=== PATIENT | male | born 1965 | race African-American/Black ===

== ENCOUNTER 2017-06-16 20:19 | Emergency (ER) | payer MEDICAID, OTHER ==
[~2017-06-16] VITALS: Ht 175.3 cm; Wt 93.0 kg
[2017-06-16] MEDS ORDERED: ACETAMINOPHEN 325MG TABLET PO ONE (23:15)
[2017-06-16 23:39] LABS: CLARITY URINE CLEAR (CLEAR); COLOR URINE YELLOW (YELLOW); GLUCOSE URINE NEGATIVE (NEGATIVE); KETONES URINE TRACE (NEGATIVE); LEUKOCYTE ESTERASE URINE NEGATIVE (NEGATIVE); NITRITE URINE NEGATIVE (NEGATIVE); OCCULT BLOOD URINE NEGATIVE (NEGATIVE); PH URINE 6.5 (4.5-8.0); PROTEIN URINE NEGATIVE (NEGATIVE); SPECIFIC GRAVITY URINE 1.029 (1.005-1.030)
[2017-06-16 23:40] LABS: BASOPHILS % 0.8 % (0.0-2.0); EOSINOPHILS % 2.1 % (0.0-5.0); HEMATOCRIT. 39.3 % (42.0-52.0); HEMOGLOBIN. 13.7 g/dL (14.0-18.0); LYMPHOCYTES % 28.4 % (20.0-50.0); MEAN CORPUSCULAR HEMOGLOBIN 31.8 pg (28.0-32.0); MEAN CORPUSCULAR VOLUME 91.1 fL (80.0-94.0); MEAN PLATELET VOLUME 8.7 fl (7.4-10.4); MONOCYTES % 11.4 % (2.0-8.0); NEUTROPHILS % 57.3 % (40.0-76.0); PLATELET 175 x1000/uL (130-400); RED BLOOD CELL COUNT 4.32 mill/uL (4.7-6.1); RED CELL DISTRIBUTION WIDTH 14.7 % (11.6-14.6)
[2017-06-16 23:46] LABS: CHLORIDE 112 mEq/L (98-107)
[2017-06-16 23:54] LABS: CARBON DIOXIDE 28 mEq/L (21-32); ETHANOL BLOOD < 10 mg/dL
[2017-06-16 23:55] LABS: *AMPHETAMINES SCREEN URINE NEGATIVE (NEGATIVE); *BARBITURATES SCREEN URINE NEGATIVE (NEGATIVE); *BENZODIAZEPINES SCREEN URINE NEGATIVE (NEGATIVE); *COCAINE SCREEN URINE NEGATIVE (NEGATIVE); CANNABINOID URINE SCREEN NEGATIVE (NEGATIVE); METHADONE URINE SCREEN NEGATIVE (NEGATIVE); OPIATES URINE SCREEN NEGATIVE (NEGATIVE); PHENCYCLIDINE URINE SCREEN NEGATIVE (NEGATIVE)
[2017-06-17 20:55] VITALS: BP 127/69
== END 2017-06-17 22:05 ==
LOC: ER 20:19
DX: R45.851 Suicidal ideations (principal); F20.9 Schizophrenia, unspecified; I10 Essential (primary) hypertension; F17.200 Nicotine dependence, unspecified, uncomplicated
CPT/HCPCS: 36415; 80053; 80305; 81003; 85025; 99285; G0482; Z7610

== ENCOUNTER 2017-08-09 11:55 | Emergency (ER) | payer MEDICAID ==
[~2017-08-09] VITALS: Ht 182.9 cm; Wt 96.0 kg
[2017-08-09] MEDS ORDERED: QUET100T PO (12:43)
[2017-08-09] MEDS ORDERED: GABA300C PO (12:43)
[2017-08-09] MEDS ORDERED: VENL-179 PO (12:43)
[2017-08-09 15:06] LABS: BASOPHILS % 0.6 % (0.0-2.0); EOSINOPHILS % 0.7 % (0.0-5.0); HEMATOCRIT. 44.9 % (42.0-52.0); HEMOGLOBIN. 15.2 g/dL (14.0-18.0); LYMPHOCYTES % 26.4 % (20.0-50.0); MEAN CORPUSCULAR HEMOGLOBIN 31.1 pg (28.0-32.0); MEAN PLATELET VOLUME 8.6 fl (7.4-10.4); MONOCYTES % 10.1 % (2.0-8.0); NEUTROPHILS % 62.2 % (40.0-76.0); PLATELET 182 x1000/uL (130-400); RED BLOOD CELL COUNT 4.87 mill/uL (4.7-6.1)
[2017-08-09 15:11] LABS: CHLORIDE 108 mEq/L (98-107)
[2017-08-09 15:13] LABS: CLARITY URINE CLEAR (CLEAR); COLOR URINE YELLOW (YELLOW); GLUCOSE URINE NEGATIVE (NEGATIVE); KETONES URINE NEGATIVE (NEGATIVE); LEUKOCYTE ESTERASE URINE NEGATIVE (NEGATIVE); NITRITE URINE NEGATIVE (NEGATIVE); OCCULT BLOOD URINE NEGATIVE (NEGATIVE); PROTEIN URINE NEGATIVE (NEGATIVE); SPECIFIC GRAVITY URINE 1.024 (1.005-1.030)
[2017-08-09 15:17] LABS: CARBON DIOXIDE 28 mEq/L (21-32)
[2017-08-09 15:31] LABS: *AMPHETAMINES SCREEN URINE NEGATIVE (NEGATIVE); *BARBITURATES SCREEN URINE NEGATIVE (NEGATIVE); *BENZODIAZEPINES SCREEN URINE NEGATIVE (NEGATIVE); *COCAINE SCREEN URINE NEGATIVE (NEGATIVE); CANNABINOID URINE SCREEN NEGATIVE (NEGATIVE); METHADONE URINE SCREEN NEGATIVE (NEGATIVE); OPIATES URINE SCREEN NEGATIVE (NEGATIVE); PHENCYCLIDINE URINE SCREEN NEGATIVE (NEGATIVE)
[2017-08-10 18:05] VITALS: BP 128/76
== END 2017-08-10 18:07 | disposition home or self-care (01) ==
LOC: ER 12:42
DX: R45.851 Suicidal ideations (principal); F20.9 Schizophrenia, unspecified; F32.9 Major depressive disorder, single episode, unspecified
CPT/HCPCS: 36415; 80048; 80305; 81003; 85025; 99284; Z7610

== ENCOUNTER 2018-01-24 19:30 | Emergency (ER) | payer MEDICAID ==
[~2018-01-24] VITALS: Ht 175.3 cm; Wt 91.0 kg
[~2018-01-24 19:30] MED LIST: GABA300C PO; QUET100T PO; VENL-179 PO
[2018-01-24 21:16] LABS: HEMATOCRIT. 46.7 % (42.0-52.0); HEMOGLOBIN. 15.5 g/dL (14.0-18.0); MEAN CORPUSCULAR HEMOGLOBIN 30.6 pg (28.0-32.0); MEAN CORPUSCULAR VOLUME 92.1 fL (80.0-94.0); MEAN PLATELET VOLUME 8.5 fl (7.4-10.4); PLATELET 195 x1000/uL (130-400); RED BLOOD CELL COUNT 5.08 mill/uL (4.7-6.1); RED CELL DISTRIBUTION WIDTH 13.8 % (11.6-14.6)
[2018-01-24 21:21] LABS: CHLORIDE 105 mEq/L (98-107)
[2018-01-24 21:26] LABS: CLARITY URINE CLEAR (CLEAR); COLOR URINE YELLOW (YELLOW); KETONES URINE NEGATIVE (NEGATIVE); LEUKOCYTE ESTERASE URINE NEGATIVE (NEGATIVE); NITRITE URINE NEGATIVE (NEGATIVE); OCCULT BLOOD URINE NEGATIVE (NEGATIVE); PROTEIN URINE 1+ (NEGATIVE); SPECIFIC GRAVITY URINE 1.036 (1.005-1.030)
[2018-01-24 21:27] LABS: ETHANOL BLOOD < 10 mg/dL
[2018-01-24 21:39] LABS: *AMPHETAMINES SCREEN URINE NEGATIVE (NEGATIVE); *BARBITURATES SCREEN URINE NEGATIVE (NEGATIVE); *BENZODIAZEPINES SCREEN URINE NEGATIVE (NEGATIVE); *COCAINE SCREEN URINE NEGATIVE (NEGATIVE); CANNABINOID URINE SCREEN PRESUMTIVE POSITIVE (NEGATIVE); METHADONE URINE SCREEN NEGATIVE (NEGATIVE); OPIATES URINE SCREEN NEGATIVE (NEGATIVE); PHENCYCLIDINE URINE SCREEN NEGATIVE (NEGATIVE)
[2018-01-24 21:41] LABS: PLATELET ESTIMATE NORMAL
[2018-01-24] MEDS ORDERED: IBUPROFEN 600MG TABLET PO ONE (23:00)
[2018-01-25 14:06] VITALS: BP 145/89
== END 2018-01-25 14:23 ==
LOC: ER 20:24
DX: R45.851 Suicidal ideations (principal); R44.0 Auditory hallucinations; M25.50 Pain in unspecified joint; I10 Essential (primary) hypertension
CPT/HCPCS: 36415; 80053; 80305; 80307; 80329; 81003; 85025; 93005; 99285; G0482; Z7610

== ENCOUNTER 2018-03-01 14:51 | Emergency (ER) | payer MEDICAID ==
[~2018-03-01] VITALS: Ht 177.8 cm; Wt 80.0 kg
[2018-03-01 16:45] LABS: BASOPHILS % 0.6 % (0.0-2.0); HEMATOCRIT. 44.8 % (42.0-52.0); HEMOGLOBIN. 15.3 g/dL (14.0-18.0); LYMPHOCYTES % 29.3 % (20.0-50.0); MEAN CORPUSCULAR HEMOGLOBIN 31.4 pg (28.0-32.0); MEAN CORPUSCULAR VOLUME 91.9 fL (80.0-94.0); MEAN PLATELET VOLUME 8.1 fl (7.4-10.4); MONOCYTES % 9.3 % (2.0-8.0); NEUTROPHILS % 57.8 % (40.0-76.0); PLATELET 214 x1000/uL (130-400); RED BLOOD CELL COUNT 4.88 mill/uL (4.7-6.1); RED CELL DISTRIBUTION WIDTH 14.5 % (11.6-14.6)
[2018-03-01 16:49] LABS: CHLORIDE 107 mEq/L (98-107)
[2018-03-01 16:52] LABS: INR 1.1; PARTIAL THROMBOPLASTIN TIME 26.4 sec (23.4-31.0); PROTHROMBIN TIME 11.2 sec (9.4-11.6)
[2018-03-01 16:53] LABS: ETHANOL BLOOD < 10 mg/dL
[2018-03-01 16:58] LABS: CREATINE KINASE 124 IU/L (39-308)
[2018-03-01 17:02] LABS: CREATINE KINASE MB FRACTION 0.9 ng/mL (0.5-3.6)
[2018-03-01 17:21] LABS: *AMPHETAMINES SCREEN URINE NEGATIVE (NEGATIVE); *BARBITURATES SCREEN URINE NEGATIVE (NEGATIVE); *BENZODIAZEPINES SCREEN URINE NEGATIVE (NEGATIVE)
[2018-03-01 17:22] LABS: *COCAINE SCREEN URINE NEGATIVE (NEGATIVE); CANNABINOID URINE SCREEN PRESUMTIVE POSITIVE (NEGATIVE); METHADONE URINE SCREEN NEGATIVE (NEGATIVE); OPIATES URINE SCREEN NEGATIVE (NEGATIVE); PHENCYCLIDINE URINE SCREEN NEGATIVE (NEGATIVE)
[2018-03-01] MEDS ORDERED: HYDROCODONE/ACETAMINOPHEN 10/325MG TABLET PO ONE (17:30)
[2018-03-01] MEDS ORDERED: ONDANSETRON 4MG ODT PO ONE (17:30)
[2018-03-01] MEDS ORDERED: ASPIRIN 81MG TABLET PO ONE (17:30)
[2018-03-01] MEDS ORDERED: LORAZEPAM 1MG TABLET PO ONE (17:30)
[2018-03-01 20:14] VITALS: BP 141/87
== END 2018-03-01 20:26 | disposition home or self-care (01) ==
LOC: ER 15:11 → CANBEDREQ 22:53
DX: S09.90XA Unspecified injury of head, initial encounter (principal); R07.89 Other chest pain; I10 Essential (primary) hypertension; G89.29 Other chronic pain; Y08.89XA Assault by other specified means, initial encounter; Y93.89 Activity, other specified; Y92.89 Other specified places as the place of occurrence of the external cause; Y99.8 Other external cause status
CPT/HCPCS: 36415; 70450; 71045; 80053; 80305; 80307; 80329; 82550; 82553; 83690; 83880; 84443; 84484; 85025; 85610; 85730; 93005; 99285; G0482; Q0162; Z7610

== ENCOUNTER 2018-06-18 12:16 | Emergency (ER) | payer MEDICAID, OTHER ==
[~2018-06-18] VITALS: Ht 175.3 cm; Wt 92.0 kg
[2018-06-18] MEDS ORDERED: ONDANSETRON HCL 4MG/2ML VIAL IV STA (12:22)
[2018-06-18] MEDS ORDERED: MORPHINE SULFATE 4 MG/ML CPJ (NOT FOR IM USE) IV STA (12:22)
[2018-06-18] MEDS ORDERED: ASPIRIN 81MG TABLET PO ONE (12:30)
[2018-06-18] MEDS ORDERED: KETOROLAC 30MG/ML VIAL IV ONE (12:45)
[2018-06-18 12:54] LABS: BASOPHILS % 0.5 % (0.0-2.0); HEMATOCRIT. 41.2 % (42.0-52.0); LYMPHOCYTES % 23.5 % (20.0-50.0); MEAN CORPUSCULAR HEMOGLOBIN 31.6 pg (28.0-32.0); MEAN CORPUSCULAR VOLUME 93.5 fL (80.0-94.0); MEAN PLATELET VOLUME 8.4 fl (7.4-10.4); MONOCYTES % 11.9 % (2.0-8.0); NEUTROPHILS % 62.1 % (40.0-76.0); PLATELET 171 x1000/uL (130-400); RED BLOOD CELL COUNT 4.41 mill/uL (4.7-6.1); RED CELL DISTRIBUTION WIDTH 15.1 % (11.6-14.6)
[2018-06-18 13:00] LABS: CHLORIDE 110 mEq/L (98-107)
[2018-06-18 13:01] LABS: INR 1.1; PROTHROMBIN TIME 11.9 sec (9.4-11.6)
[2018-06-18 13:05] LABS: ETHANOL BLOOD < 10 mg/dL
[2018-06-18 13:09] LABS: CREATINE KINASE 181 IU/L (39-308); CREATINE KINASE MB FRACTION 0.8 ng/mL (0.5-3.6)
[2018-06-18 14:24] LABS: *AMPHETAMINES SCREEN URINE NEGATIVE (NEGATIVE); *BARBITURATES SCREEN URINE NEGATIVE (NEGATIVE); *BENZODIAZEPINES SCREEN URINE NEGATIVE (NEGATIVE)
[2018-06-18 14:25] LABS: *COCAINE SCREEN URINE NEGATIVE (NEGATIVE); CANNABINOID URINE SCREEN PRESUMTIVE POSITIVE (NEGATIVE); METHADONE URINE SCREEN NEGATIVE (NEGATIVE); OPIATES URINE SCREEN NEGATIVE (NEGATIVE); PHENCYCLIDINE URINE SCREEN NEGATIVE (NEGATIVE)
[2018-06-19 17:29] VITALS: BP 135/71
== END 2018-06-19 17:32 | disposition home or self-care (01) ==
LOC: ER 12:16 → CANBEDREQ 06-19 01:06 → ER 06-19 17:32
DX: R07.89 Other chest pain (principal); R45.851 Suicidal ideations; E11.9 Type 2 diabetes mellitus without complications; I10 Essential (primary) hypertension; F20.89 Other schizophrenia; Z79.82 Long term (current) use of aspirin
CPT/HCPCS: 36415; 71045; 80053; 80305; 80307; 80329; 82550; 82553; 83690; 83880; 84439; 84443; 84481; 84484; 85025; 85610; 93005; 96374; 96375; 99285; G0482; J1885; J2405

== ENCOUNTER 2018-06-20 23:56 | Emergency (ER) | payer OTHER ==
[~2018-06-20] VITALS: Ht 175.3 cm; Wt 93.0 kg
[2018-06-21 00:01] VITALS: BP 132/80
[2018-06-21] MEDS ORDERED: DIPHENHYDRAMINE 50MG/ML VIAL IM ONE (03:15)
== END 2018-06-21 03:35 | disposition home or self-care (01) ==
LOC: ER 06-21 00:27
DX: S60.569A Insect bite (nonvenomous) of unspecified hand, initial encounter (principal); I10 Essential (primary) hypertension; F20.9 Schizophrenia, unspecified; W57.XXXA Bitten or stung by nonvenomous insect and other nonvenomous arthropods, initial encounter; Y93.84 Activity, sleeping; Y92.9 Unspecified place or not applicable
CPT/HCPCS: 96372; 99283; J1200

== ENCOUNTER 2018-06-21 03:30 | Emergency (ER) | payer OTHER ==
[~2018-06-21] VITALS: Ht 182.9 cm; Wt 91.0 kg
[2018-06-21 05:56] VITALS: BP 126/79
== END 2018-06-21 05:59 | disposition home or self-care (01) ==
LOC: ER 03:30
DX: Z59.0 Homelessness (principal); I10 Essential (primary) hypertension; F20.9 Schizophrenia, unspecified
CPT/HCPCS: 99281; 99282

== ENCOUNTER 2018-06-21 09:22 | Emergency (ER) | payer OTHER ==
[~2018-06-21] VITALS: Ht 170.2 cm; Wt 96.0 kg
[2018-06-21 11:39] LABS: CLARITY URINE CLEAR (CLEAR); COLOR URINE YELLOW (YELLOW); KETONES URINE NEGATIVE (NEGATIVE); LEUKOCYTE ESTERASE URINE NEGATIVE (NEGATIVE); NITRITE URINE NEGATIVE (NEGATIVE); OCCULT BLOOD URINE NEGATIVE (NEGATIVE); PH URINE 6.5 (4.5-8.0); PROTEIN URINE TRACE (NEGATIVE); SPECIFIC GRAVITY URINE 1.027 (1.005-1.030)
[2018-06-21 14:07] VITALS: BP 131/76
== END 2018-06-21 14:14 | disposition home or self-care (01) ==
LOC: ER 11:33
DX: F20.9 Schizophrenia, unspecified (principal); E11.9 Type 2 diabetes mellitus without complications; I10 Essential (primary) hypertension; Z59.0 Homelessness
CPT/HCPCS: 81003; 99284; Z7610

== ENCOUNTER 2021-10-11 23:04 | Emergency (ER) | payer OTHER ==
[~2021-10-11] VITALS: Ht 177.8 cm; Wt 75.0 kg
[2021-10-11] MEDS ORDERED: OLANZAPINE 10 MG/VIAL IM STA (23:35)
[2021-10-11] MEDS ORDERED: LORAZEPAM 2MG/ML CPJ IM STA (23:35)
[2021-10-11] MEDS ORDERED: SODIUM CHLORIDE 0.9% 1,000 ML IV ONE (23:45)
[2021-10-12 00:42] LABS: BASOPHILS % 0.9 % (0.0-2.0); HEMATOCRIT. 41.7 % (42.0-52.0); LYMPHOCYTES % 33.4 % (20.0-50.0); MEAN CORPUSCULAR HEMOGLOBIN 31.2 pg (28.0-32.0); MEAN CORPUSCULAR VOLUME 92.5 fL (80.0-94.0); MEAN PLATELET VOLUME 8.3 fl (7.4-10.4); MONOCYTES % 10.4 % (2.0-8.0); NEUTROPHILS % 53.3 % (40.0-76.0); PLATELET 189 x1000/uL (130-400); RED BLOOD CELL COUNT 4.51 mill/uL (4.7-6.1); RED CELL DISTRIBUTION WIDTH 14.1 % (11.6-14.6)
[2021-10-12 00:48] LABS: CHLORIDE 111 mEq/L (98-107)
[2021-10-12 00:52] LABS: ETHANOL BLOOD < 10 mg/dL
[2021-10-12] MEDS ORDERED: IBUP-2029 MT (00:58)
[2021-10-12 02:19] LABS: CLARITY URINE CLEAR (CLEAR); COLOR URINE YELLOW (YELLOW); KETONES URINE NEGATIVE (NEGATIVE); LEUKOCYTE ESTERASE URINE NEGATIVE (NEGATIVE); NITRITE URINE NEGATIVE (NEGATIVE); OCCULT BLOOD URINE NEGATIVE (NEGATIVE); PH URINE 5.5 (4.5-8.0); PROTEIN URINE NEGATIVE (NEGATIVE); SPECIFIC GRAVITY URINE 1.008 (1.005-1.030); UROBILINOGEN URINE 0.2 E.U./dL (0.2-1.0)
[2021-10-12 02:27] LABS: *AMPHETAMINES SCREEN URINE NEGATIVE (NEGATIVE); *BARBITURATES SCREEN URINE NEGATIVE (NEGATIVE); *BENZODIAZEPINES SCREEN URINE NEGATIVE (NEGATIVE); *COCAINE SCREEN URINE PRESUMTIVE POSITIVE (NEGATIVE)
[2021-10-12 02:28] LABS: CANNABINOID URINE SCREEN PRESUMTIVE POSITIVE (NEGATIVE); METHADONE URINE SCREEN NEGATIVE (NEGATIVE); OPIATES URINE SCREEN NEGATIVE (NEGATIVE); PHENCYCLIDINE URINE SCREEN NEGATIVE (NEGATIVE)
[2021-10-12] MEDS ORDERED: ACETAMINOPHEN 325MG TABLET PO NR (16:45)
[2021-10-12 17:00] VITALS: BP 132/80
[2021-10-12] MEDS ORDERED: OLANZAPINE 5MG TABLET ODT PO SCH (17:00)
== END 2021-10-12 17:23 | disposition short-term general hospital (02) ==
LOC: ER 23:04
DX: R45.851 Suicidal ideations (principal); F20.9 Schizophrenia, unspecified; F14.10 Cocaine abuse, uncomplicated; Z79.899 Other long term (current) drug therapy; Z20.822 Contact with and (suspected) exposure to COVID-19
CPT/HCPCS: 36415; 80053; 80305; 80307; 80320; 80329; 81003; 85025; 96372; 99285; C9803; J2060; J3490; J7030; U0003; U0005; G0480

== ENCOUNTER 2025-01-07 12:42 | Emergency (ER) | payer OTHER ==
[~2025-01-07] VITALS: Ht 188 cm; Wt 90.0 kg
[~2025-01-07 12:42] MED LIST changes: +IBUP-2029 MT
[2025-01-07 12:50] VITALS: BP 138/76; PULSE 74; RESP 16; TEMP 36.6; O2SAT 98
[2025-01-07] MEDS ORDERED: IBUP-2029 MT (17:45)
== END 2025-01-07 18:08 | disposition home or self-care (01) ==
LOC: ER 12:42
DX: G89.29 Other chronic pain (principal); M54.9 Dorsalgia, unspecified; F20.9 Schizophrenia, unspecified; M19.90 Unspecified osteoarthritis, unspecified site; Z79.899 Other long term (current) drug therapy; Z98.890 Other specified postprocedural states
CPT/HCPCS: 99283